=== PATIENT | female | born 1950 | race Caucasian/White ===

== ENCOUNTER → 2017-09-08 14:01 | Outpatient (CLI) | payer MEDICARE, BC ==
[~2017-09-08 14:01] MED LIST: CALCIUM 500 +1 EAC3 PO; LUTEIN20 MG PO; MULTI-DAY VITAM1 TAB PO; NORVASC10 MG PO; TYLENOL W/CODEI1 TAB PO
== END | disposition home or self-care (01) ==
LOC: D.LABREF 14:01
DX: M25.551 Pain in right hip (principal); Z11.8 Encounter for screening for other infectious and parasitic diseases

== ENCOUNTER 2017-09-15 07:08 | Inpatient (IN) | payer MEDICARE, BC | END 2017-09-17 11:22 | disposition home or self-care (01) | DRG 470 | LOC: D.SDCHOLD 07:08 → D.MS 13:45 | PROC: 0SR901Z Replacement of Right Hip Joint with Metal Synthetic Substitute, Open Approach (ICD-10-PCS; principal; 2017-09-15) | DX: M16.11 Unilateral primary osteoarthritis, right hip (principal); J45.909 Unspecified asthma, uncomplicated; D64.9 Anemia, unspecified; I10 Essential (primary) hypertension; Z87.891 Personal history of nicotine dependence ==

== ENCOUNTER 2018-04-05 09:14 | Day surgery (SDC) | payer MEDICARE, BC ==
[~2018-04-05] VITALS: Ht 172.7 cm; Wt 98.4 kg
--- NOTE | ~2018-04-05 | OP ---
PATIENT NAME: JERRY BECERRA MEDICAL RECORD: [id number] :46 LOCATION:[facility] ADMISSION DATE: SURGEON: JULITO HOWELL DO DATE OF OPERATION: 04/05/2018 PROCEDURE PERFORMED: Right knee arthroscopy with partial medial and partial lateral meniscectomies and medial femoral condyle abrasion chondroplasty. PREOPERATIVE DIAGNOSIS: Right knee medial meniscal tear. 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 INDICATIONS: Ms. Becerra is a 67-year-old female who was seen in my office for right knee pain. She had x-rays taken and shown mild degenerative changes. An MRI was done by her primary care that showed a meniscal tear. She was tired of dealing with it catching, locking, popping and the pain and she wanted something done. I told her that we could help her with the tear, but that it may not resolve all of her symptoms. She was okay with that and wanted to proceed forward with the procedure. She is aware of the risks and benefits of the procedure including infection, bleeding, damage to nerves and vessels and wanted to proceed forward. SURGEON: Julito Howell DO DESCRIPTION OF PROCEDURE: The patient was taken to the operative suite, laid in supine position. Right lower extremity was prepped and draped in sterile fashion. Timeout was performed, everyone was in agreement with the correct side, site, patient, and procedure. The patient was given 2 grams of Ancef preoperatively. Once the timeout was done, the knee was flexed down. The lateral portal was established first with an 11-blade scalpel. The scope was then entered into the knee and the knee brought into extension and the knee was inspected. Patella was inspected first and the suprapatellar pouch. The patella was noted to have grade III chondromalacia changes. The lateral gutter did not have any loose bodies neither did the medial gutter. The knee was then flexed down and the medial compartment was entered. An 18-gauge spinal needle was used to then locate the site for the medial portal and then a #11 blade scalpel was used to establish a trocar and then probe was put into the knee. The grade III chondromalacia was noted on the medial femoral condyle as well as the meniscal tear of the posterior horn. The posterior horn meniscal tear was trimmed out with an upbiter and shaver and then the chondroplasty was done removing all the loose cartilage that was on the medial femoral condyle. The ACL was then inspected and seen to be in good position and very taut. The probe was then parked in the lateral compartment and the knee was [id number]. The camera was then entered into the lateral compartment and the meniscal tear was seen on the lateral meniscus around the mid portion of it. A biter and shaver was then used to trim that out and back to a stable position. After this was done, the shaver was removed and the knee was brought back into an extension. The water was turned off. Suction was turned on. All excess fluid was removed out of the knee. The scope was then taken out of the knee. The portal sites were closed with 4-0 Monocryl in an inverted interrupted fashion. Steri-Strips were placed on that. Adaptic, 4 x 4s, ABD, Webril and Mariano wrap were then placed on the knee and a KIM stocking was placed up to the knee. The blood loss was minimal. Complications were none. The patient was awakened and taken to recovery in stable condition. OPERATIVE REPORT [id number] JERRY BECERRA TRANSINT:[id number] Voice Confirmation ID: [id number] DOCUMENT ID: [id number] JULITO HOWELL DO at 1705 CC: [id number] DICTATION DATE: 04/05/18 1451 THERAPY MANAGER: 04/05/18 1512 [facility] [address] [place] [address]
[~2018-04-05 09:14] MED LIST changes: +ATARAX 25 MG TA25 MG PO; +BAYER CHEWABLE81 MG PO; +COZAAR100 MG PO; +ELIQUIS2.5 MG PO; +KEFLEX500 MG PO; +OXYCODONE HCL5 MG PO
[2018-04-05 09:40] LABS: HEMATOCRIT 42.7 % (36.0-48.0); HEMOGLOBIN 13.6 g/dL (12-16); MCH 28.8 pg (26.0-34.0); MCHC 31.9 g/dL (31.0-37.0); MCV 90.5 fL (80.0-100.0); MEAN PLATELET VOLUME 9.6 fL (7.4-10.4); RBC 4.72 10x6/uL (4.00-5.40); RDW 13.6 % (11.5-14.5); WBC 9.9 10x3/uL (4.8-10.8)
[2018-04-05 09:52] LABS: ANION GAP 11.9 mmol/L (8-16); CALCIUM 8.8 mg/dL (8.5-10.1); CARBON DIOXIDE 28.4 mmol/L (21.0-32.0); POTASSIUM - SERUM 4.3 mmol/L (3.5-5.1)
[2018-04-05 11:16] VITALS: BP 152/76; Ht 172.7 cm; Wt 98.4 kg
[2018-04-05] MEDS ORDERED: MOBIC7.5 MG PO (11:35)
[2018-04-05] MEDS ORDERED: OXYCODONE HCL5 MG PO (13:36)
== END 2018-04-05 16:24 | disposition home or self-care (01) ==
LOC: D.OPS 09:14 → D.PAN 14:00 → D.OPS 14:00
PROVIDERS: Anesthesiology
DX: S83.241A Other tear of medial meniscus, current injury, right knee, initial encounter (principal); S83.281A Other tear of lateral meniscus, current injury, right knee, initial encounter; M22.41 Chondromalacia patellae, right knee; Z01.812 Encounter for preprocedural laboratory examination